=== PATIENT | male | born 1945 | race Caucasian/White ===

== ENCOUNTER 2018-07-19 06:31 | Emergency (ER) | payer MEDICARE, OTHER ==
--- NOTE | 2018-07-19 06:34 | ER Report ---
History and Physical Time Seen By MD: 06:34 HPI/ROS CHIEF COMPLAINT: Right lower quadrant abdominal pain HISTORY OF PRESENT ILLNESS: Patient is a 72-year-old male who presents to the emergency department for evaluation of right lower quadrant abdominal pain that is 8 out of 10 in intensity. Patient states symptoms began last night around 8 PM. He reports last meal was at 5 PM. Patient states that the pain initially was across the lower abdomen now seems to have migrated and settled to the right lower quadrant. He reports mild nausea but no vomiting. He reports no recent travel history he further reports he may have been on antibiotics in May after having a hip replacement. He denies any fevers or chills. She denies chest pain. REVIEW OF SYSTEMS: Constitutional: No fever, no chills. Eyes: No discharge. ENT: No sore throat. Cardiovascular: No chest pain, no palpitations. Respiratory: No cough, Gastrointestinal: Right lower quadrant abdominal pain, nausea, no vomiting, diarrhea Genitourinary: No hematuria. Musculoskeletal: No back pain. Skin: No rashes. Neurological: No headache. Allergies: Uncoded Allergies: HEATING PAD CHEMICAL (Allergy, 10/20/12) Home Meds Reported Medications Lisinopril (Lisinopril) 5 Mg Tablet, 2.5 MG PO 10/20/12 Pravastatin Sod (Pravachol) 20 Mg Tab, 20 MG PO QHS 10/20/12 Fluoxetine Hcl (Prozac) 40 Mg Capsule, 40 MG PO QDAY, #20 10/20/12 Propranolol Hcl (Inderal) 10 Mg Tablet, 5 MG PO HS 10/20/12 Glipizide (Glucotrol) 5 Mg Tab, 2.5 MG PO QDAY 10/20/12 Aripiprazole (Abilify) 5 Mg Tablet, 2.5 MG PO 10/20/12 Metformin Hcl (Glucophage) 1,000 Mg Tablet, 1000 MG PO BIDBS 10/20/12 Past Medical/Surgical History Past medical history for hypertension, hypercholesterolemia, type II diabetes. Hx Smoking: Yes Hx Substance Use Disorder: No Hx Alcohol Use: No Constitutional Vital Sign - Last 24 Hours 07/19/18 07/19/18 07/19/18 07/19/18 06:37 06:45 07:00 07:05 Temp 98.0 Pulse 103 90 86 Resp 22 B/P (MAP) 140/66 127/57 (80) Pulse Ox 92 93 87 O2 Delivery Room Air O2 Flow Rate 2.0 07/19/18 07/19/18 07/19/18 07:15 07:30 08:00 Pulse 82 82 B/P (MAP) 131/62 (85) Pulse Ox 90 95 O2 Flow Rate 1.0 Physical Exam General/Constitutional: Patient is awake, alert, nontoxic and in no acute respiratory distress. Head: Normocephalic and atraumatic. Eyes: Conjunctival clear, Pupils are equal and reactive to light. Extraocular muscles are intact and symmetrical. Sclera are clear and anicteric. Ears:External canals are clear. Tympanic membranes are clear with normal landmarks and light reflex. Nares: No rhinorrhea or bleeding. Turbinates are pink and moist. Oropharyngeal: Mucous membranes are moist. There is no pharyngeal erythema or exudate. There are no palatal petechiae. Uvula is midline and symmetrical. Neck: Supple, no adenopathy. Cardiovascular: Heart is regular rate and rhythm without audible murmurs, rubs or gallops. Pulmonary: Lungs are clear to auscultation bilaterally. There are no wheezes, rales, or rhonchi. Chest rise is symmetrical Abdomen: Protuberant abdomen with hyperactive bowel sounds right lower quadrant pain to palpation. Extremities: No gross deformities, No peripheral cyanosis. Able to move all 4 extremities. Neuro: Alert and oriented X3, Skin: No rashes, skin is warm dry and well perfused. Medical Decision Making Data Points Result Diagram: 07/19/18 0655 07/19/18 0655 Laboratory Hematology Test 07/19/18 06:37 07/19/18 06:55 Urine Color Yellow Urine Clarity Slightly-cloudy Urine pH 5.0 pH (4.8-9.5) Urine Specific [place] 1.018 Urine Protein 500 mg/dL (NEGATIVE) Urine Glucose (UA) 50 mg/dL (NEGATIVE) Urine Ketones Negative mg/dL (NEGATIVE) Urine Blood Negative (NEGATIVE) Urine Nitrite Negative (NEGATIVE) Urine Bilirubin Negative (NEGATIVE) Urine Urobilinogen 2.0 mg/dL (0.2-1.9) Urine Leukocyte Esterase Negative (NEGATIVE) Urine RBC 3 /HPF (0-2/HPF) Urine WBC 1 /HPF (0-5/HPF) Urine Squamous Epithelial Cells Many /LPF (</=FEW) Urine Bacteria Negative /HPF (NONE-FEW) Urine Hyaline Casts Many /LPF (NONE-FEW) Urine Mucus Few /HPF (NONE-FEW) Red Blood Count 4.98 M/uL (4.00-5.60) Mean Corpuscular Volume 96.5 fL (80.0-96.0) Mean Corpuscular Hemoglobin 31.9 pg (26.0-33.0) Mean Corpuscular Hemoglobin Concent 33.0 g/dL (32.0-36.0) Red Cell Distribution Width 14.0 % (11.5-14.5) Mean Platelet Volume 7.5 fL (7.2-11.1) Neutrophils (%) (Auto) 86.5 % (39.4-72.5) Lymphocytes (%) (Auto) 6.6 % (17.6-49.6) Monocytes (%) (Auto) 5.7 % (4.1-12.4) Eosinophils (%) (Auto) 0.6 % (0.4-6.7) Basophils (%) (Auto) 0.6 % (0.3-1.4) Nucleated RBC Relative Count (auto) 0.0 /100WBC Neutrophils # (Auto) 8.1 K/uL (2.0-7.4) Lymphocytes # (Auto) 0.6 K/uL (1.3-3.6) Monocytes # (Auto) 0.5 K/uL (0.3-1.0) Eosinophils # (Auto) 0.1 K/uL (0.0-0.5) Basophils # (Auto) 0.1 K/uL (0.0-0.1) Nucleated RBC Absolute Count (auto) 0.00 K/uL Sodium Level 134 mmol/L (137-145) Potassium Level 4.4 mmol/L (3.5-5.0) Chloride Level 103 mmol/L (98-107) Carbon Dioxide Level 26 mmol/L (22-30) Blood Urea Nitrogen 15 mg/dl (9-21) Creatinine 1.10 mg/dl (0.66-1.25) Glomerular Filtration Rate Calc > 60.0 Random Glucose 192 mg/dl (75-110) Calcium Level 8.7 mg/dl (8.4-10.2) Total Bilirubin 0.9 mg/dl (0.2-1.3) Aspartate Amino Transf (AST/SGOT) 20 U/L (0-35) Alanine Aminotransferase (ALT/SGPT) 25 U/L (0-56) Alkaline Phosphatase 109 U/L (0-126) Total Protein 6.1 g/dl (6.3-8.2) Albumin 3.1 g/dl (3.5-5.0) Lipase 69 U/L (23-300) Helicobacter pylori IgG Antibody Negative (NEGATIVE) Chemistry Test 07/19/18 06:37 07/19/18 06:55 Urine Color Yellow Urine Clarity Slightly-cloudy Urine pH 5.0 pH (4.8-9.5) Urine Specific [place] 1.018 Urine Protein 500 mg/dL (NEGATIVE) Urine Glucose (UA) 50 mg/dL (NEGATIVE) Urine Ketones Negative mg/dL (NEGATIVE) Urine Blood Negative (NEGATIVE) Urine Nitrite Negative (NEGATIVE) Urine Bilirubin Negative (NEGATIVE) Urine Urobilinogen 2.0 mg/dL (0.2-1.9) Urine Leukocyte Esterase Negative (NEGATIVE) Urine RBC 3 /HPF (0-2/HPF) Urine WBC 1 /HPF (0-5/HPF) Urine Squamous Epithelial Cells Many /LPF (</=FEW) Urine Bacteria Negative /HPF (NONE-FEW) Urine Hyaline Casts Many /LPF (NONE-FEW) Urine Mucus Few /HPF (NONE-FEW) White Blood Count 9.4 k/uL (4.5-11.0) Red Blood Count 4.98 M/uL (4.00-5.60) Hemoglobin 15.9 g/dL (14.0-18.0) Hematocrit 48.0 % (42.0-52.0) Mean Corpuscular Volume 96.5 fL (80.0-96.0) Mean Corpuscular Hemoglobin 31.9 pg (26.0-33.0) Mean Corpuscular Hemoglobin Concent 33.0 g/dL (32.0-36.0) Red Cell Distribution Width 14.0 % (11.5-14.5) Platelet Count 199 K/uL (150-450) Mean Platelet Volume 7.5 fL (7.2-11.1) Neutrophils (%) (Auto) 86.5 % (39.4-72.5) Lymphocytes (%) (Auto) 6.6 % (17.6-49.6) Monocytes (%) (Auto) 5.7 % (4.1-12.4) Eosinophils (%) (Auto) 0.6 % (0.4-6.7) Basophils (%) (Auto) 0.6 % (0.3-1.4) Nucleated RBC Relative Count (auto) 0.0 /100WBC Neutrophils # (Auto) 8.1 K/uL (2.0-7.4) Lymphocytes # (Auto) 0.6 K/uL (1.3-3.6) Monocytes # (Auto) 0.5 K/uL (0.3-1.0) Eosinophils # (Auto) 0.1 K/uL (0.0-0.5) Basophils # (Auto) 0.1 K/uL (0.0-0.1) Nucleated RBC Absolute Count (auto) 0.00 K/uL Glomerular Filtration Rate Calc > 60.0 Calcium Level 8.7 mg/dl (8.4-10.2) Total Bilirubin 0.9 mg/dl (0.2-1.3) Aspartate Amino Transf (AST/SGOT) 20 U/L (0-35) Alanine Aminotransferase (ALT/SGPT) 25 U/L (0-56) Alkaline Phosphatase 109 U/L (0-126) Total Protein 6.1 g/dl (6.3-8.2) Albumin 3.1 g/dl (3.5-5.0) Lipase 69 U/L (23-300) Helicobacter pylori IgG Antibody Negative (NEGATIVE) Urinalysis Test 07/19/18 06:37 Urine Color Yellow Urine Clarity Slightly-cloudy Urine pH 5.0 pH (4.8-9.5) Urine Specific [place] 1.018 Urine Protein 500 mg/dL (NEGATIVE) Urine Glucose (UA) 50 mg/dL (NEGATIVE) Urine Ketones Negative mg/dL (NEGATIVE) Urine Blood Negative (NEGATIVE) Urine Nitrite Negative (NEGATIVE) Urine Bilirubin Negative (NEGATIVE) Urine Urobilinogen 2.0 mg/dL (0.2-1.9) Urine Leukocyte Esterase Negative (NEGATIVE) Urine RBC 3 /HPF (0-2/HPF) Urine WBC 1 /HPF (0-5/HPF) Urine Squamous Epithelial Cells Many /LPF (</=FEW) Urine Bacteria Negative /HPF (NONE-FEW) Urine Hyaline Casts Many /LPF (NONE-FEW) Urine Mucus Few /HPF (NONE-FEW) EKG/Imaging EKG Interpretation 07/19/2018 6:58:31 am EKG shows normal sinus rhythm with a ventricular rate of 85 bpm with a QTC of 487 ms Monitor Interpretation: Normal Sinus Rhythm Imaging FACILITY: [facility] - [place], [place] PATIENT NAME: Jose Dickson : 1945 MR: [id number] V: [id number] EXAM DATE: [id number] ORDERING PHYSICIAN: CHAPINCITO FORD TECHNOLOGIST: Location: [facility] - [place] Patient: Jose Dickson : 1945 Visit/Account:[id number] Date of Sevice: 07/19/2018 CT ABDOMEN PELVIS W/ CON HISTORY: Right lower quadrant pain TECHNIQUE: Axial images were obtained through the abdomen and pelvis with intravenous contrast . One of the following dose optimization techniques was utilized in the performance of this exam: automated exposure control; adjustment of the mA and/or kv according to patient size; or use of iterative reconstruction technique. Specific details can be referenced in the facility's radiology CT exam operational policy. CONTRAST: 75 cc of Isovue-370 COMPARISON: None. FINDINGS: Visualized lung bases: Negative. Hepatobiliary: There is portal venous gas within the liver. Spleen: Negative. Adrenals: Negative. Pancreas: Negative. Kidneys/ureters/bladder: Simple bilateral renal cysts measuring up to 1.5 cm. No hydronephrosis. Bowel/peritoneum/mesentery: Mild thickening of the ascending colon. Gas within mesenteric veins draining the right colon. No bowel obstruction or free air. Several fluid-filled/nondilated small bowel loops. Vessels: Common trunk of the celiac and SMA. Severe calcification at the origin of the common trunk with high-grade stenosis. Hypertrophied JER noted. Lymph nodes: Negative. Pelvic genitourinary: Diffuse thickening of the urinary bladder wall. Bones/body wall: Multilevel mild degenerative disc disease within the spine. Other findings: None significant IMPRESSION: 1. Findings consistent with ischemic colitis of the ascending colon. Mild thickening of the ascending colon with gas seen within associated draining mesenteric veins. There is also a small amount of portal venous gas peripherally within the liver. There is a common trunk of the celiac/SMA with extensive calcification at its origin with high-grade stenosis. Hypertrophied JER. Results were called to CHAPINCITO FORD at 07/19/2018 8:09AM. Report Dictated By: Davi Barney MD at 07/19/2018 7:58 AM Report E-Signed By: Davi Barney MD at 07/19/2018 8:35 AM WSN:[id number] ED Course/Re-evaluation Clinical Indication for ER IV: Hydration, IV Access ED Course 07/19/2018 6:54:10 am patient with right lower quadrant pain differential diagnosis includes appendicitis, colitis, C. difficile colitis, kidney stone, biliary colic. Plan at this time will be IV pain medicine, Zofran IV fluids. We will keep the patient nothing by mouth. Perform abdominal workup including lab work and CT scan. 07/19/2018 7:59:49 am patient given 4 mg of morphine and 4 mg of Zofran along with a liter of normal saline. Patient states pain is improved from 8 out of 10 to now 2 out of 10. Awaiting official CT results. Blood work is otherwise unremarkable. 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 Patient will require emergent interventional radiology for dilation and placement of a stent. Patient normally gets care at the [facility] in [place]. I spoke with the triage nurse at [facility] and she stated that interventional radiology procedures are typically "shipped out". Closest hospital be [facility] waiting to hear from the consulting physician. 07/19/2018 9:06:49 am with the vascular surgeon as well as Dr. Luciano who will be the accepting hospitalist for this patient at [facility]. History physical exam all pertinent lab data and imaging studies were provided. They have accepted the patient at this time for transfer for evaluation and definitive management of this patient's ischemic colitis. Patient is attempting to contact the national [facility]. However I feel this patient's condition is emergent and should not delay transfer Decision to Disposition Date: Jul 19, 2018 Decision to Disposition Time: 09:08 Depart Departure Latest Vital Signs Vital Signs Date Time Temp Pulse Resp B/P (MAP) Pulse Ox O2 Delivery O2 Flow Rate FiO2 07/19/18 08:00 1.0 07/19/18 07:30 82 131/62 (85) 95 07/19/18 06:37 98.0 22 Room Air Impression: Primary Impression: Ischemic colitis Condition: Improved Disposition: XFER TO ACUTE CARE HOSPITAL (To Dr Luciano at [facility]) CHAPINCITO FORD MD Jul 19, 2018 06:34
[2018-07-19] MEDS ORDERED: MORPHINE 4 MG/ML SDV IVP ONE ×2 (06:50→09:05)
[2018-07-19] MEDS ORDERED: ONDANSETRON 4 MG/2 ML VIAL IVP ONE (06:50)
[2018-07-19] MEDS ORDERED: IOPAMIDOL 76% 50 ML INFUS BTL 100 ML ONE (06:55)
[2018-07-19] MEDS ORDERED: NS(*) 0.9% 1000 ML BAG 1,000 ML IV ONE (06:55)
[2018-07-19 07:03] LABS: PLATELET COUNT, AUTOMATED 199 K/uL (150-450)
--- NOTE | 2018-07-19 07:09 | EKG ---
FACILITY: [facility] - [place] PATIENT NAME: JOSE DAVID TORRES : [id number] MR: [id number] V: [id number] EXAM DATE: ORDERING PHYSICIAN: CHAPINCITO FORD TECHNOLOGIST: ANNA Test Reason : AB PAIN Blood Pressure : / mmHG Vent. Rate : 085 BPM Atrial Rate : 085 BPM P-R Int : 160 ms QRS Dur : 086 ms QT Int : 410 ms P-R-T Axes : 055 074 095 degrees QTc Int : 487 ms Normal sinus rhythm Prolonged QT Abnormal ECG No previous ECGs available Confirmed by KASEY FISHER ([id number]) on 07/19/2018 9:24:34 AM Referred By: LOGAN Confirmed By:KASEY FISHER
--- NOTE | 2018-07-19 08:41 | RADIOLOGY IMAGING REPORT ---
FACILITY: [facility] PATIENT NAME: Jose Dickson : 1945 MR: [id number] V: [id number] EXAM DATE: ORDERING PHYSICIAN: CHAPINCITO FORD TECHNOLOGIST: [place] [facility] [place]: Jose Dickson : 1945 Visit/Account:[id number] Date of Sevice: 07/19/2018 CT ABDOMEN PELVIS W/ CON HISTORY: Right lower quadrant pain TECHNIQUE: Axial images were obtained through the abdomen and pelvis with intravenous contrast . One of the following dose optimization techniques was utilized in the performance of this exam: automate d exposure control; adjustment of the mA and/or kv according to patient size; or use of iterative rec onstruction technique. Specific details can be referenced in the facility's radiology CT exam operati onal policy. CONTRAST: 75 cc of Isovue-370 COMPARISON: None. FINDINGS: Visualized lung bases: Negative. Hepatobiliary: There is portal venous gas within the liver. Spleen: Negative. Adrenals: Negative. Pancreas: Negative. Kidneys/ureters/bladder: Simple bilateral renal cysts measuring up to 1.5 cm. No hydronephrosis. Bowel/peritoneum/mesentery: Mild thickening of the ascending colon. Gas within mesenteric veins south ining the right colon. No bowel obstruction or free air. Several fluid-filled/nondilated small bowel loops. Vessels: Common trunk of the celiac and SMA. Severe calcification at the origin of the common trunk with high-grade stenosis. Hypertrophied JER noted. Lymph nodes: Negative. Pelvic genitourinary: Diffuse thickening of the urinary bladder wall. Bones/body wall: Multilevel mild degenerative disc disease within the spine. Other findings: None significant IMPRESSION: 1. Findings consistent with ischemic colitis of the ascending colon. Mild thickening of the ascending colon with gas seen within associated draining mesenteric veins. There is also a small amount of por adithya venous gas peripherally within the liver. There is a common trunk of the celiac/SMA with extensiv e calcification at its origin with high-grade stenosis. Hypertrophied JER. Results were called to CHAPINCITO FORD at 07/19/2018 8:09AM. Report Dictated By: Davi Barney MD at 07/19/2018 7:58 AM Report E-Signed By: Davi Barney MD at 07/19/2018 8:35 AM WSN:[id number]
[2018-07-19 09:30] VITALS: BP 152/70
== END 2018-07-19 10:04 | disposition short-term general hospital (02) ==
LOC: ER 06:35
DX: K55.9 Vascular disorder of intestine, unspecified (principal); I77.4 Celiac artery compression syndrome
CPT/HCPCS: 74177; 81001; 83690; 85025; 86677; 93005; 96361; 96374; 96375; 96376; 99285; J2270; J2405; J7030; Q9967; 82040; 82247; 82310; 82374; 82435; 82565; 82947; 84075; 84132; 84155; 84295; 84450; 84460; 84520

== ENCOUNTER → 2018-07-19 | Outpatient (CLI) | payer OTHER ==
[~2018-07-19] MED LIST: ARIP5TAB28 PO; FLUO40CA76 PO; GLI5 PO; LISI-1 PO; METF-420 PO; PRA20 PO; PROP10TA58 PO
== END ==
LOC: AMB 09:49
PROVIDERS: ATTEND Nurse Practitioner
DX: R10.31 Right lower quadrant pain (principal); I10 Essential (primary) hypertension; E11.9 Type 2 diabetes mellitus without complications; G40.909 Epilepsy, unspecified, not intractable, without status epilepticus
CPT/HCPCS: A0425; A0426

== ENCOUNTER → 2018-07-25 | Outpatient (CLI) | payer OTHER | LOC: LAB 11:19 | DX: N17.9 Acute kidney failure, unspecified (principal) | CPT/HCPCS: 36415; 82310; 82374; 82435; 82565; 82947; 84132; 84295; 84520 ==